=== PATIENT | female | born 1965 | race Caucasian/White ===

== ENCOUNTER 2023-05-03 11:50 | Outpatient (CLI) | payer OTHER, MEDICARE, SELFPAY | END 2023-05-03 11:51 | disposition home or self-care (01) | PROVIDERS: PCP Family Medicine; Visit Provider Family Medicine | DX: Z00.00 Encounter for general adult medical examination without abnormal findings (principal); E56.9 Vitamin deficiency, unspecified; R63.6 Underweight; R53.83 Other fatigue; Z13.6 Encounter for screening for cardiovascular disorders | CPT/HCPCS: 80053; 80061; 82306; 82607; 84443 ==

== ENCOUNTER 2023-11-02 08:55 | Outpatient (CLI) | payer MEDICARE, OTHER, SELFPAY | END 2023-11-02 08:56 | disposition home or self-care (01) | LOC: FRMREF 08:58 | PROVIDERS: PCP Family Medicine; Visit Provider Physician Assistant Medical | DX: R59.1 Generalized enlarged lymph nodes (principal); R10.32 Left lower quadrant pain; R63.6 Underweight; E56.9 Vitamin deficiency, unspecified | CPT/HCPCS: 84443 ==